=== PATIENT | female | born 1990 | race Two or more races ===

== ENCOUNTER 2020-08-02 19:17 | Emergency (ER) | payer OTHER ==
[2020-08-02] MEDS ORDERED: ASPIRIN 81 MG TABLET, CHEWABLE PO ONE (20:08)
--- NOTE | 2020-08-02 20:10 | ER Document Report ---
ED Medical Screen (RME) - General Chief Complaint: Chest Pain Stated Complaint: CHEST PAIN/LEFT ARM PAIN Time Seen by Provider: 08/02/20 20:05 Mode of Arrival: Ambulatory Information source: Patient Notes: HPI;30-year-old female presents to the emergency room complaining of intermittent chest pain that radiates into her left arm that started yesterday. She describes it as pressure. She denies any shortness of breath, no difficulty breathing. No recent trauma or injury. Denies any history of PE or DVTs. Denies any recent travel. Denies fevers.. No medications for symptoms. Denies . PE: Alert and oriented x3. Lungs: Clear to auscultation without rales, rhonchi, wheezes. Heart tachycardic without murmurs, rubs, gallops. I have greeted and performed a rapid initial assessment of this patient. A comprehensive ED assessment and evaluation of the patient, analysis of test results and completion of the medical decision making process will be conducted by additional ED providers. I have specifically instructed the patient or family members with the patient to immediately return to any nursing staff should anything change in the patient's condition or with their chief complaint. TRAVEL OUTSIDE OF THE [place] IN LAST 30 DAYS: No - Related Data Allergies/Adverse Reactions: No Known Allergies Allergy (Unverified 08/02/20 20:04) Physical Exam - Vital signs Vitals: Temp Pulse Resp BP Pulse Ox 98.4 F 113 H 16 143/89 H 100 08/02/20 19:42 08/02/20 19:42 08/02/20 19:42 08/02/20 19:42 08/02/20 19:42 Course - Vital Signs Vital signs: Temp Pulse Resp BP Pulse Ox 98.4 F 113 H 16 143/89 H 100 08/02/20 19:42 08/02/20 19:42 08/02/20 19:42 08/02/20 19:42 08/02/20 19:42
--- NOTE | 2020-08-02 20:49 | RADIOLOGY REPORT (SQ) ---
EXAM DESCRIPTION: X-ray, two views of the chest CLINICAL HISTORY: 30 years Female, chest pain COMPARISON: None. FINDINGS: Lungs: Lungs are clear. No pneumonia or edema. No pneumothorax or pleural effusion. Mediastinum: Cardiac and mediastinal silhouette are normal. Bones: Osseous structures are normal. IMPRESSION: Unremarkable radiographs of the chest
[2020-08-02 21:06] LABS: ABSOLUTE LYMPHOCYTES (AUTO) 2.9 10^3/uL (0.5-4.7); ABSOLUTE MONOCYTES (AUTO) 0.6 10^3/uL (0.1-1.4); ABSOLUTE NEUT (AUTO) 6.1 10^3/uL (1.7-8.2); BASOPHILS % (AUTO) 0.2 % (0-2); EOSINOPHILS % (AUTO) 0.4 % (0-6); HEMATOCRIT 38.6 % (36.0-47.0); HEMOGLOBIN 14.1 g/dL (12.0-15.5); MEAN CORPUSCULAR HEMOGLOBIN 32.3 pg (27.0-33.4); MEAN CORPUSCULAR HGB CONC 36.6 g/dL (32.0-36.0); MEAN CORPUSCULAR VOLUME 88 fl (80-97); MONOCYTES % (AUTO) 6.6 % (3-13); PLATELET COUNT 356 10^3/uL (150-450); RED BLOOD COUNT 4.37 10^6/uL (3.72-5.28); SEGMENTED NEUTROPHILS % (AUTO) 62.8 % (42-78); TOTAL CELLS COUNTED % (AUTO) 100 %; WHITE BLOOD COUNT 9.7 10^3/uL (4.0-10.5)
[2020-08-02 21:20] LABS: ALKALINE PHOSPHATASE 88 U/L (38-126); ANION GAP 13 (5-19); ASPARTATE AMINO TRANSFERASE 34 U/L (14-36); BILIRUBIN,DIRECT 0.2 mg/dL (0.0-0.4); BILIRUBIN,TOTAL 0.7 mg/dL (0.2-1.3); BLOOD UREA NITROGEN 17 mg/dL (7-20); CALCIUM 10.2 mg/dL (8.4-10.2); CARBON DIOXIDE 27 mmol/L (22-30); CHLORIDE 98 mmol/L (98-107); CREATINE KINASE 83 U/L (30-135); GLUCOSE 96 mg/dL (75-110); POTASSIUM 4.1 mmol/L (3.6-5.0); TOTAL PROTEIN 8.7 g/dL (6.3-8.2)
[2020-08-02 21:30] LABS: CREATINE KINASE MB 0.72 ng/mL (<4.55)
[2020-08-02 21:31] LABS: TROPONIN I < 0.012 ng/mL
--- NOTE | 2020-08-03 00:01 | ER Document Report ---
ED General - General Chief Complaint: Chest Pain Stated Complaint: CHEST PAIN/LEFT ARM PAIN Time Seen by Provider: 08/02/20 20:05 Primary Care Provider: IGLESIA TEIXEIRA [NO LOCAL MD] - Follow up in 3-5 days Mode of Arrival: Ambulatory TRAVEL OUTSIDE OF THE [place] IN LAST 30 DAYS: No - HPI Notes: 30-year-old female with history of anxiety and hypertension to the emergency department with complaints of midsternal chest pain that radiates to the left arm that began yesterday. She states that she has had chest pain in the past associated with her anxiety but she is never had left arm pain with it. She also states that her arm feels like it is about to fall asleep. She denies any weakness in the arm. Denies any pain with deep breath, movement. Denies any recent change in exercise regimen. She denies any shortness of breath, diaphoresis, nausea vomiting. The chest pain comes and goes but is not associated with exertion. She is not a smoker. She does not use drugs. She does not have a history of diabetes or hyperlipidemia. There is no family history of heart disease. She is not on any control. She has not recently been traveling. She denies any leg swelling. She is never had a history of DVT or PE. States that she supposed to be starting Prozac soon through her [place] clinic. She states is coming in the mail. She denies any SI, HI, hallucinations. - Related Data Allergies/Adverse Reactions: No Known Allergies Allergy (Unverified 08/02/20 20:04) Past Medical History - General Information source: Patient - Social History Smoking Status: Never Smoker Chew tobacco use (# tins/day): No Frequency of alcohol use: None Drug Abuse: None Family History: Reviewed & Not Pertinent Patient has homicidal ideation: No Review of Systems - Review of Systems Constitutional: denies: Chills, Diaphoresis, Fever EENT: No symptoms reported Cardiovascular: Chest pain, Heart racing. denies: Palpitations, Dyspnea, Syncope, Dizziness, Lightheaded Respiratory: denies: Cough, Short of breath Gastrointestinal: denies: Abdominal pain, Diarrhea, Nausea, Vomiting Genitourinary: denies: Dysuria, Frequency, Flank pain, Hematuria, Incontinence Musculoskeletal: No symptoms reported Skin: No symptoms reported Hematologic/Lymphatic: No symptoms reported Neurological/Psychological: No symptoms reported -: Yes All other systems reviewed and negative Physical Exam - Vital signs Vitals: Temp Pulse Resp BP Pulse Ox 98.4 F 113 H 16 143/89 H 100 08/02/20 19:42 08/02/20 19:42 08/02/20 19:42 08/02/20 19:42 08/02/20 19:42 Interpretation: Tachycardic - General General appearance: Appears well, Alert, Anxious Notes: Patient slightly anxious, slightly tearful. in no acute distress - HEENT Head: Normocephalic, Atraumatic Eyes: Normal Pupils: PERRL - Respiratory Respiratory status: No respiratory distress Chest status: Nontender. No: Tender, Pain on movement, Pain with cough, Accessory muscle use Breath sounds: Normal. No: Productive cough, Rales, Rhonchi Chest palpation: Normal - Cardiovascular Rhythm: Regular Heart sounds: Normal auscultation Murmur: No Notes: No pitting edema - Abdominal Inspection: Normal Distension: No distension Bowel sounds: Normal Tenderness: Nontender Organomegaly: No organomegaly - Back Back: Normal, Nontender - Neurological Neuro grossly intact: Yes Cognition: Normal Orientation: AAOx4 Spur Coma Scale Eye Opening: Spontaneous Dhara Coma Scale Verbal: Oriented Spur Coma Scale Motor: Obeys Commands Spur Coma Scale Total: 15 Speech: Normal Motor strength normal: LUE, RUE, LLE, RLE Sensory: Normal - Psychological Associated symptoms: Normal affect, Normal mood - Skin Skin Temperature: Warm Skin Moisture: Dry Skin Color: Normal Course - Re-evaluation Re-evalutation: 08/03/20 Heart score of 1. Cannot rule out for PERC due to tachycardia. However she has a low Wells risk for PE. She has no leg swelling, no recent travel, no recent surgery, no exogenous hormone use, no shortness of breath. 08/03/20 02:17 Patient has done well in the emergency department she is feeling better. She has 2- trending troponins. Her TSH is within reasonable realm. Her heart rate has come down from 120s to 86. The plan will be to send her home with some Vistaril. Do think that there is some underlying anxiety here that she has been suffering with. She is supposed to get Prozac in a couple of days from the [place]. Advised her that Prozac can take 4 to 6 weeks to really start to work. Encouraged her to return if any worsening symptoms. [facility] Patient agrees with the plan. 08/03/20 02:18 Temp Pulse Resp BP Pulse Ox 98.4 F 113 H 13 143/90 H 98 08/02/20 19:42 08/02/20 19:42 08/03/20 02:01 08/03/20 02:01 08/03/20 02:01 Intake & Output 08/01/20 08/02/20 08/03/20 06:59 06:59 06:59 Weight 72.9 kg Weight/Height Weight 72.9 kg Height 5 ft 1 in Current HR of 89 at 2:18 am. - Vital Signs Vital signs: Temp Pulse Resp BP Pulse Ox 97.9 F 113 H 15 138/83 H 98 08/03/20 03:01 08/02/20 19:42 08/03/20 03:01 08/03/20 03:01 08/03/20 03:01 - Laboratory Result Diagrams: 08/02/20 20:40 08/02/20 20:40 Laboratory results interpreted by me: 08/02/20 08/02/20 20:40 20:40 MCHC 36.6 H Total Protein 8.7 H - Diagnostic Test Radiology reviewed: Image reviewed, Reports reviewed - EKG Interpretation by Me Additional EKG results interpreted by me: 08/03/20 EKG interpretation by myself: Rate 125, rhythm sinus tachycardia with no STEMI. No ST changes, no LVH, no prior for comparison Discharge - Discharge Clinical Impression: Tingling of left upper extremity, Anxiety Chest pain Qualifiers: Chest pain type: unspecified Qualified Code(s): R07.9 - Chest pain, unspecified Condition: Stable Disposition: HOME, SELF-CARE Instructions: Chest Pain of Unclear Cause ([facility]) Additional Instructions: Take medicine as prescribed. Return if any worsening symptoms. Follow-up with the [place] [facility] for further work-up. Take antianxiety medicine as prescribed until your Prozac comes. Prescriptions: Hydroxyzine Pamoate [Vistaril 25 mg Capsule] 1 - 2 cap PO Q6 PRN #30 capsule PRN Reason: Forms: Return to Work [facility]errals: [facility] [NO LOCAL MD] - Follow up in 3-5 days
[2020-08-03] MEDS ORDERED: NORMAL SALINE 1000 ML 1,000 ML IV ONE (00:10)
[2020-08-03] MEDS ORDERED: HYDROXYZINE PAMOATE 25 MG CAPSULE PO ONE (00:11)
[2020-08-03 03:11] VITALS: BP 138/83
--- NOTE | 2020-08-03 07:27 | EKG REPORT ---
SEVERITY:- OTHERWISE NORMAL ECG - SINUS TACHYCARDIA : Confirmed by: Josué Corbett MD 03-Aug-2020 07:27:34
== END 2020-08-03 03:11 | disposition home or self-care (01) ==
LOC: ER 19:17
DX: R20.2 Paresthesia of skin (principal); F41.9 Anxiety disorder, unspecified; R07.9 Chest pain, unspecified; M79.602 Pain in left arm; R00.0 Tachycardia, unspecified; I10 Essential (primary) hypertension
CPT/HCPCS: 93005; 99285; 96360; 36415; 82553; 82550; 84443; 84703; 85025; 80053; 84484; 71046; 93010; J7030